=== PATIENT | female | born 1995 | race Caucasian/White ===

== ENCOUNTER 2025-08-21 20:32 | Emergency (ER) | payer OTHER ==
[~2025-08-21] VITALS: Ht 160 cm; Wt 94.9 kg
[2025-08-21] MEDS ORDERED: MULT-90 PO (21:26)
[2025-08-21] MEDS ORDERED: ELECTROLYTE PO (21:26)
[2025-08-21] MEDS ORDERED: TIRZ5VIA SQ (21:26)
[2025-08-21] MEDS ORDERED: ISOVUE-370 76% 100 ML VIAL As Ordered ONE (22:04)
[2025-08-21 22:24] LABS: BASO # 0.0 10^3/uL (0.0-0.2); BASO % 0.4 % (0.0-1.0); EOS # 0.1 10^3/uL (0.0-0.5); EOS % 1.1 % (0.0-3.0); LYMPH # 3.4 10^3/uL (1.5-5.0); LYMPH % 43.0 % (24.0-44.0); MONO # 0.6 10^3/uL (0.0-0.8); MONO % 6.9 % (2.0-8.0); NEUTROPHILS # 3.8 10^3/uL (1.5-8.5); NEUTROPHILS % 48.3 % (36.0-66.0); PLATELET COUNT, AUTOMATED 318 10^3/uL (150-450)
[2025-08-21 22:48] LABS: CALCIUM LEVEL 9.0 MG/DL (8.5-10.1); CARBON DIOXIDE LEVEL 29 MMOL/L (20-31); CHLORIDE LEVEL 106 MMOL/L (98-107); CREATININE FOR GFR 0.88 MG/DL (0.55-1.30); GLOMERULAR FILTRATION RATE > 90.0 (>60); POTASSIUM SERUM 3.9 MMOL/L (3.5-5.1); SODIUM LEVEL 143 MMOL/L (136-145)
[2025-08-21] MEDS: ACETAMINOPHEN 500 MG TAB PO ONE (23:07)
[2025-08-21] MEDS ORDERED: COLA100C5 PO (23:47)
[2025-08-22 00:25] VITALS: BP 118/78; TEMP 97.1; O2SAT 99
== END 2025-08-22 00:28 | disposition home or self-care (01) ==
LOC: M ED 20:32
DX: K59.00 Constipation, unspecified (principal); R10.9 Unspecified abdominal pain; Z79.810 Long term (current) use of selective estrogen receptor modulators (SERMs); Z79.899 Other long term (current) drug therapy
CPT/HCPCS: 36415; 71260; 74177; 80047; 80048; 85025; 99284; Q9967